=== PATIENT | female | born 1945 | race Caucasian/White ===

== ENCOUNTER 2016-08-07 10:08 | Emergency (ER) | payer MEDICARE, MEDICAID ==
--- NOTE | 2016-08-07 11:26 | ED Physician Chart ---
Chief Complaint/HPI - Patient Information Date Seen:: 08/07/16 Time Seen:: 11:10 Chief Complaint:: left arm pain History of Present Illness:: going upstairs two days ago using a cane fell against the wall. Complains of pain at site of trauma. Allergies:: Allergies Allergy/AdvReac Type Severity Reaction Status Date / Time naproxen Allergy Verified 08/07/16 10:17 Vitals:: Vital Signs - 8 hr 08/07/16 10:10 Temp 97.0 F HR 101 RR 16 BP 129/73 O2 Sat % 97 Historian:: Patient Review:: Nurse's Note Reviewed Review of Systems - Review of Systems General/Constitutional: No fever, No chills Skin: Skin lesions Head: No headache Eyes: No loss of vision ENT: No earache, Sore throat Neck: No neck pain Cardio Vascular: No chest pain Pulmonary: No SOB, No cough GI: No nausea, No vomiting G/U: No dysuria Musculoskeletal: No bone or joint pain Endocrine: No polyuria, No polydipsia Psychiatric: No prior psych history Hematopoietic: Bruising Allergic/Immuno: No urticaria Neurological: No syncope Past Medical History - Past Medical History Past Medical History: Arthritis Family History: None Social History: Non Smoker, No Alcohol Surgical History: other (right knee replacement) Psychiatricy History: None Medication: None Family Medical History - Family Member Mother History Unknown: Yes Hx Family Diabetes: Yes Physical Exam - Physical Examination General/Constitutional: Well-developed, well-nourished, Alert Other Gen/Cons comments:: noted to use left arm normally Head: Atraumatic Eyes: Lids, conjuctiva normal, PERRL Other Skin comments:: 8 cm yellow and purple contusion and two 1 1/2 cm abrasions left upper arm. No signs of infection. ENMT: External ears, nose nl Neck: No nuchal rigidity Respiratory: Nl effort/Exclusion, Clear to Auscultation Cardio Vascular: RRR, No murmur, gallop, rubs GI: No tenderness/rebounding/guarding, No organomegaly, No hernia, Normal BS's : No CVA tenderness Extremities: No tenderness or effusion Neuro/Psych: Alert/oriented, No focal deficits Misc: Normal back Assessment - Assessment General Assessment: told patient I do not recommend antibiotics as lesion does not look infected but patient wanted them. ED Septic Shock - . Is Septic Shock (SBP<90, OR Lactate>4 mmol\L) present?: No - <6hrs of presentation: Vital Signs: Vital Signs - 8 hr 08/07/16 10:10 Temp 97.0 F HR 101 RR 16 BP 129/73 O2 Sat % 97 Reassessment (Disposition) - Reassessment Reassessment Condition:: Unchanged - Diagnosis Diagnosis:: contusion and abrasion left upper arm - Aftercare/Follow up Instructions Aftercare/Follow-Up Instructions:: Refer to Discharge Instructions Medication Prescribed:: Keflex 500 mg QID for one week - Patient Disposition Discharge/Transfer:: Home Condition at Disposition:: Stable, Unchanged ED Discharge Plan - Patient Disposition Instructions: Contusion, Laceration Care, Adult
== END 2016-08-07 11:40 | disposition home or self-care (01) ==
LOC: ER 10:08
DX: S40.022A Contusion of left upper arm, initial encounter (principal); Z88.8 Allergy status to other drugs, medicaments and biological substances; W19.XXXA Unspecified fall, initial encounter; Y93.89 Activity, other specified; Y92.89 Other specified places as the place of occurrence of the external cause; Y99.8 Other external cause status
CPT/HCPCS: Z7502

== ENCOUNTER 2016-10-20 11:13 | Emergency (ER) | payer MEDICARE, MEDICAID ==
[2016-10-20 11:51] LABS: % BASOPHILS 0.3 % (0.0-2.0); % LYMPHOCYTES 27.6 % (20.0-50.0); % MONOCYTES 8.9 % (2.0-10.0); % NEUTROPHILS 61.2 % (40.0-80.0); HEMATOCRIT 39.7 % (35.0-45.0); HEMOGLOBIN 13.5 gm/dL (11.7-16.1); MEAN CORPUSCULAR HEMOGLOBIN 29.7 pg (27.0-31.0); MEAN CORPUSCULAR HGB CONC 34.1 pg (28.0-36.0); PLATELET COUNT 289 Th/cmm (150-400); RED BLOOD COUNT 4.56 Mil/cmm (3.80-5.20); RED CELL DISTRIBUTION WIDTH 12.7 % (11.5-20.0)
[2016-10-20 12:01] LABS: ALB/GLOB RATIO 1.2 (1.0-1.8); ALKALINE PHOSPHATASE 63 U/L (34-104); ANION GAP 8.8 (7.0-16.0); BILIRUBIN,TOTAL 0.4 mg/dL (0.3-1.0); BUN - UREA NITROGEN 21 mg/dL (7-25); BUN/CREATININE RATIO 26.3; CALCIUM SERUM 9.3 mg/dL (8.6-10.3); CARBON DIOXIDE 22.8 mEq/L (21.0-31.0); CHLORIDE 108 mEq/L (98-107); CREATININE - SERUM 0.8 mg/dL (0.6-1.2); GLUCOSE 136 mg/dL (70-105); POTASSIUM SERUM 3.6 mEq/L (3.5-5.1); SGOT 12 U/L (13-39); SGPT/ALT 7 U/L (7-52); SODIUM SERUM 136 mEq/L (136-145)
[2016-10-20 12:09] LABS: WHITE BLOOD COUNT 8.2 Th/cmm (4.8-10.8)
--- NOTE | 2016-10-20 12:14 | Diagnostic Imaging Report ---
Portable chest x-ray HISTORY: Pain, trauma The heart size is difficult to assess with portable technique. After scarring calcination seen in the aorta. No acute focal pulmonary processes. Question subtle fracture involving the posterior aspect of the right seventh rib. If indicated, dedicated rib radiographs of provide additional assessment. Arthritic changes noted about the shoulder regions. IMPRESSION: 1. No acute focal pulmonary processes 2. Subtle deformity involving the posterior aspect of the right seventh rib. A fracture cannot be excluded. If indicated, dedicated rib radiographs would provide additional assessment. 3. Atherosclerotic vascular changes
--- NOTE | 2016-10-20 12:16 | Diagnostic Imaging Report ---
Lumbar spine (3 views) HISTORY: Pain There is spondylolisthesis of L4 and L5 (approximately 15% displacement). There are diffuse degenerative changes with hypertrophic spur formation noted about the endplates of all vertebrae. Marked narrowing of the L3-4 interspace. Narrowing the L4-5 interspace also noted. Narrowing of the T12-L1 interspace. Air seen with the interspaces at T12-L1 and L3-4 reflecting degenerative disc disease. Marked hypertrophic changes noted about the posterior elements at L4-5 and L5-S1. Question spondylolysis at L4-5. IMPRESSION: 1. Spondylolisthesis of L4 and L5 with suggestion of spondylolysis. 2. Diffuse degenerative changes
--- NOTE | 2016-10-20 12:17 | Diagnostic Imaging Report ---
Left shoulder (2 views) HISTORY: Pain Views are limited due to difficulty in patient positioning. The glenohumeral joint space is poorly visualized. Dislocation cannot be excluded. Hypertrophic degenerative bony changes noted about the acromioclavicular joint. Additional irregularity and hypertrophic changes noted along the lateral margin of the humeral head and greater tuberosity. IMPRESSION: 1. Suboptimal visualization of the glenohumeral joint space. Dislocation cannot be definitely excluded. If necessary, a CT scan would provide additional detail. 2. Degenerative changes
--- NOTE | 2016-10-20 12:18 | Diagnostic Imaging Report ---
Left wrist (3 views) HISTORY: Pain, trauma Generalized osteoporosis. Degenerative changes are noted. Narrowing of the radiocarpal joint space. Irregularity noted along the lateral margin of the navicular bone. No definite fractures are seen. Degenerative changes noted about the first metacarpal carpal joint and first metacarpal phalangeal joint. Vascular calcification noted. IMPRESSION: 1. No definite acute bony abnormalities 2. Degenerative changes In the presence of recent trauma and persistent symptoms, a repeat radiograph in 5-7 days may be helpful for detection of a subtle or occult fracture.
--- NOTE | 2016-10-20 12:19 | Diagnostic Imaging Report ---
Left knee (3 views) HISTORY: Pain Medial joint space narrowing. Hypertrophic degenerative spur formation seen about the medial lateral femoral condyles and medial tibial plateau. Narrowing and hypertrophic degenerative bony changes noted about the patellofemoral joint area. No acute abnormalities. No fractures. Vascular calcification seen. IMPRESSION: 1. No definite acute bony abnormalities 2. Degenerative changes 3. Atherosclerotic vascular
--- NOTE | 2016-10-20 12:19 | ED Physician Chart ---
Chief Complaint/HPI - Patient Information Date Seen:: 10/20/16 Time Seen:: 11:36 Chief Complaint:: MULTIPLE TRAUMA History of Present Illness:: THIS IS A 70 YO FEMALE WHO STATES THAT SHE HAD A DIZZINESS AT MORMONISM YESTERDAY AND FELL SUSTAINING INJURIES TO THE LEFT SIDE OF HER BODY. SHE IS NOW CONCERNED ABOUT HER LEFT SHOULDER, LEFT WRIST, LEFT RIB CAGE, LOWER BACK AND LEFT KNEE. SHE DENIES CHEST AND HEART PAIN. SHE DENIES LOC. SHE STATES THAT SHE USES A CANE TO WALK Allergies:: Allergies Allergy/AdvReac Type Severity Reaction Status Date / Time naproxen Allergy Verified 08/07/16 10:17 Vitals:: Vital Signs - 8 hr 10/20/16 10/20/16 11:24 11:37 Temp 97.8 F 98.0 F HR 81 80 RR 18 18 BP 112/67 112/73 O2 Sat % 95 97 Historian:: Patient Review:: Nurse's Note Reviewed Review of Systems - Review of Systems General/Constitutional: No fever, No chills, No weight loss, No weakness, No diaphoresis, No edema, No loss of appetite Skin: No skin lesions, No rash, No bruising Head: No headache, No light-headedness Eyes: No loss of vision, No pain, No diplopia ENT: No earache, No nasal drainage, No sore throat, No tinnitus Neck: No neck pain, No swelling, No thyromegaly, No stiffness, No mass noted Cardio Vascular: No chest pain, No palpitations, No PND, No orthopnea, No edema Pulmonary: No SOB, No cough, No sputum, No wheezing GI: No nausea, No vomiting, No diarrhea, No pain, No melena, No hematochezia, No constipation, No hematemesis G/U: No dysuria, No frequency, No hematuria Musculoskeletal: Bone or joint pain, Back pain Endocrine: No polyuria, No polydipsia Psychiatric: No prior psych history, No depression, No anxiety, No suicidal ideation Hematopoietic: No bruising, No lymphadenopathy Allergic/Immuno: No urticaria, No angioedema Neurological: No syncope, No focal symptoms, No weakness, No paresthesia, No headache, No seizure, No dizziness, No confusion, No vertigo Past Medical History - Past Medical History Obtainable: Yes Past Medical History: Arthritis Family History: None Social History: Non Smoker, No Alcohol, No Drug Use, Surgical History: other (CATARACTS AND LEFT KNEE SURGERY) Family Medical History - Family Member Mother History Unknown: Yes Hx Family Diabetes: Yes Physical Exam - Physical Examination General/Constitutional: Awake, Well-developed, well-nourished, Alert, No distress, GCS 15, Non-toxic appearing, Ambulatory Head: Atraumatic Eyes: Lids, conjuctiva normal, PERRL, EOMI Skin: Nl inspection, No rash, No skin lesions, No ecchymosis, Well hydrated, No lymphadenopathy ENMT: External ears, nose nl, Nasal exam nl, Lips, teeth, gums nl Neck: Nontender, Full ROM w/o pain, No JVD, No nuchal rigidity, No bruit, No mass, No stridor Respiratory: Nl effort/Exclusion, Clear to Auscultation, No Wheeze/Rhonchi/Rales Cardio Vascular: RRR, No murmur, gallop, rubs, NL S1 S2 GI: No tenderness/rebounding/guarding, No organomegaly, No hernia, Normal BS's, Nondistended, No mass/bruits, No McBurney tenderness : No CVA tenderness Extremities: No tenderness or effusion, Full ROM, normal strength in all extremities, No edema, Normal digits & nails Other Extremities comments:: MINIMAL TENDERNESS WITH NORMAL ROM OF THE LEFT SHOULDER, LEFT WRIST, LEFT CHEST WALL AND LEFT KNEE. Neuro/Psych: Alert/oriented, DTR's symmetric, Normal sensory exam, Normal motor strength, Judgement/insight normal, Mood normal, Normal gait, No focal deficits Misc: normal gait, Normal back, No paraspinal tenderness Labs/Radiology/EKG Results - Lab Results Results: Laboratory Tests 10/20/16 10/20/16 10/20/16 11:30 11:30 11:30 WBC 8.2 D RBC 4.56 Hgb 13.5 Hct 39.7 MCV 87.0 MCH 29.7 MCHC Differential 34.1 RDW 12.7 Plt Count 289 MPV 8.0 Neutrophils % 61.2 Lymphocytes % 27.6 Monocytes % 8.9 Eosinophils % 2.0 Basophils % 0.3 Sodium 136 Potassium 3.6 Chloride 108 H Carbon Dioxide 22.8 Anion Gap 8.8 BUN 21 Creatinine 0.8 Est GFR ( Amer) TNP Est GFR (Non-Af Amer) TNP BUN/Creatinine Ratio 26.3 Glucose 136 H Calcium 9.3 Total Bilirubin 0.4 AST 12 L ALT 7 Alkaline Phosphatase 63 Troponin I 0.01 Total Protein 6.9 Albumin 3.8 Globulin 3.1 Albumin/Globulin Ratio 1.2 ED Septic Shock - . Is Septic Shock (SBP<90, OR Lactate>4 mmol\L) present?: No - <6hrs of presentation: Vital Signs: Vital Signs - 8 hr 10/20/16 10/20/16 11:24 11:37 Temp 97.8 F 98.0 F HR 81 80 RR 18 18 BP 112/67 112/73 O2 Sat % 95 97 Reassessment (Disposition) - Reassessment Reassessment Condition:: Improved - Diagnosis Diagnosis:: MULTIPLE CONTUSIONS OF THE LEFT SIDE OF THE BODY - Aftercare/Follow up Instructions Aftercare/Follow-Up Instructions:: Counseled pt regarding lab results/diagnosis & need follow up, Refer to Discharge Instructions, Counseled pt & family regarding lab results/diagnosis & need follow up - Patient Disposition Discharge/Transfer:: Home Condition at Disposition:: Improved ED Discharge Plan - Patient Disposition Admit/Discharge/Transfer: PT DISCHARGED HOME Condition at Disposition: Improved
== END 2016-10-20 13:25 | disposition home or self-care (01) ==
LOC: ER 11:13
DX: S40.012A Contusion of left shoulder, initial encounter (principal); S60.212A Contusion of left wrist, initial encounter; S20.212A Contusion of left front wall of thorax, initial encounter; S80.02XA Contusion of left knee, initial encounter; Z88.8 Allergy status to other drugs, medicaments and biological substances; X58.XXXA Exposure to other specified factors, initial encounter; Y93.89 Activity, other specified; Y92.89 Other specified places as the place of occurrence of the external cause; Y99.8 Other external cause status
CPT/HCPCS: 36415-UA; 71010-TC; 72110-TC; 73030-TC-LT; 73110-TC-LT; 73562-TC-LT; 80053-TC; 84443-TC; 84484-TC; 85025-TC

== ENCOUNTER 2016-11-10 11:52 | Emergency (ER) | payer MEDICARE, MEDICAID ==
--- NOTE | 2016-11-10 12:40 | ED Physician Chart ---
Chief Complaint/HPI - Patient Information Date Seen:: 11/10/16 Time Seen:: 12:35 Chief Complaint:: HEADACHE History of Present Illness:: THIS IS A 71 YO FEMALE WHO STATES THAT SHE FELL SEVERAL DAYS AGO AND SUSTAINED AN INJURY TO THE LEFT SIDE OF HER HEAD. SHE IS NOW CONCERNED THAT SHE MIGHT HAVE A SERIOUS BRAIN INJURY. SHE DENIES ALL OTHER INJURIES. SHE DENIES CHEST PAIN AND ABDOMINAL PAIN. SHE STATES THAT SHE AWAITING SURGERY ON HER LEFT KNEE. Allergies:: Allergies Allergy/AdvReac Type Severity Reaction Status Date / Time naproxen Allergy Verified 08/07/16 10:17 Historian:: Patient Review:: Nurse's Note Reviewed Review of Systems - Review of Systems General/Constitutional: No fever, No chills, No weight loss, No weakness, No diaphoresis, No edema, No loss of appetite Skin: No skin lesions, No rash, No bruising Head: Headache, No light-headedness Eyes: No loss of vision, No pain, No diplopia ENT: No earache, No nasal drainage, No sore throat, No tinnitus Neck: No neck pain, No swelling, No thyromegaly, No stiffness, No mass noted Cardio Vascular: No chest pain, No palpitations, No PND, No orthopnea, No edema Pulmonary: No SOB, No cough, No sputum, No wheezing GI: No nausea, No vomiting, No diarrhea, No pain, No melena, No hematochezia, No constipation, No hematemesis G/U: No dysuria, No frequency, No hematuria Musculoskeletal: No bone or joint pain, No back pain, No muscle pain Endocrine: No polyuria, No polydipsia Psychiatric: No prior psych history, No depression, No anxiety, No suicidal ideation Hematopoietic: No bruising, No lymphadenopathy Allergic/Immuno: No urticaria, No angioedema Neurological: No syncope, No focal symptoms, No weakness, No paresthesia, No headache, No seizure, No dizziness, No confusion, No vertigo Past Medical History - Past Medical History Obtainable: Yes Past Medical History: HTN, Other Family History: None Social History: Non Smoker, No Alcohol, No Drug Use, Single Surgical History: Cholecystectomy Psychiatricy History: None Medication: Reviewed Family Medical History - Family Member Mother History Unknown: Yes Hx Family Diabetes: Yes Physical Exam - Physical Examination General/Constitutional: Awake, Well-developed, well-nourished, Alert, No distress, GCS 15, Non-toxic appearing, Ambulatory Other Head comments:: THERE IS SOME TENDERNESS AND SWELLING OVER THE LEFT TEMPORAL OCCIPITAL AREA OF THE SCALP. THERE WAS NO STEP-OFF NOTED. Eyes: Lids, conjuctiva normal, PERRL, EOMI Skin: Nl inspection, No rash, No skin lesions, No ecchymosis, Well hydrated, No lymphadenopathy ENMT: External ears, nose nl, Nasal exam nl, Lips, teeth, gums nl Neck: Nontender, Full ROM w/o pain, No JVD, No nuchal rigidity, No bruit, No mass, No stridor Respiratory: Nl effort/Exclusion, Clear to Auscultation, No Wheeze/Rhonchi/Rales Cardio Vascular: RRR, No murmur, gallop, rubs, NL S1 S2 GI: No tenderness/rebounding/guarding, No organomegaly, No hernia, Normal BS's, Nondistended, No mass/bruits, No McBurney tenderness : No CVA tenderness Extremities: No tenderness or effusion, Full ROM, normal strength in all extremities, No edema, Normal digits & nails Neuro/Psych: Alert/oriented, DTR's symmetric, Normal sensory exam, Normal motor strength, Judgement/insight normal, Mood normal, Normal gait, No focal deficits Misc: normal gait, Normal back, No paraspinal tenderness Assessment - Assessment General Assessment: CONTUSION OF THE HEAD ED Septic Shock - . Is Septic Shock (SBP<90, OR Lactate>4 mmol\L) present?: No Reassessment (Disposition) - Reassessment Reassessment Condition:: Improved - Diagnosis Diagnosis:: HEAD CONTUSION - Aftercare/Follow up Instructions Aftercare/Follow-Up Instructions:: Counseled pt regarding lab results/diagnosis & need follow up, Refer to Discharge Instructions, Counseled pt & family regarding lab results/diagnosis & need follow up - Patient Disposition Discharge/Transfer:: Home Condition at Disposition:: Unchanged ED Discharge Plan - Patient Disposition Admit/Discharge/Transfer: PT DISCHARGED HOME Condition at Disposition: Stable Prescriptions: Gabapentin 600 mg PO Q8H PRN #20 tablet PRN Reason: PAIN Instructions: Contusion, Contusion, [id number] Accepting Physician: Juvenal Ortega [Active] -
--- NOTE | 2016-11-10 13:01 | Diagnostic Imaging Report ---
CT scan of the brain without intravenous contrast HISTORY: Trauma Total DLP equals 470 CTDI equals 30.4 Axial sections were obtained from the base of the skull to the vertex. No prior studies available for comparison. There is prominence/enlargement of the ventricular system size. Associated enlargement of cerebral sulci and subarachnoid cisterns. Findings are consistent with changes of generalized cerebral atrophy. No acute parenchymal abnormalities. No acute cerebral hemorrhage. Hypodensity is seen within the supratentorial white matter regions without mass effect. The findings may be associated with chronic small vessel ischemic disease. No extra-axial masses or abnormal fluid collections. IMPRESSION: 1. No acute abnormalities 2. Cerebral atrophy 3. Supratentorial white matter changes that may reflect chronic small vessel ischemic disease 4. Calcification of left vertebral artery appreciated
== END 2016-11-10 13:49 | disposition home or self-care (01) ==
LOC: ER 11:52
DX: S00.03XA Contusion of scalp, initial encounter (principal); I10 Essential (primary) hypertension; Z90.49 Acquired absence of other specified parts of digestive tract; Z88.8 Allergy status to other drugs, medicaments and biological substances; W19.XXXA Unspecified fall, initial encounter; Y93.89 Activity, other specified; Y92.89 Other specified places as the place of occurrence of the external cause; Y99.8 Other external cause status
CPT/HCPCS: 70450-TC; Z7502